=== PATIENT | male | born 1995 | race Caucasian/White ===

== ENCOUNTER 2020-09-25 22:43 | Emergency (ER) | payer OTHER, BC ==
--- NOTE | 2020-09-25 23:12 | EDM.PDOC ---
ED HPI GENERAL MEDICAL PROBLEM - General Chief Complaint: Bite:Animal, Insect Stated Complaint: DOG BITE Time Seen by Provider: 09/25/20 23:11 - History of Present Illness INITIAL COMMENTS - FREE TEXT/NARRATIVE: 25-year-old male presents the emergency room after a dog bite to the right arm. This occurred around 1230 this afternoon. The patient was evaluated at the [place] walk-in clinic. He was started on an antibiotic and got these filled and started taking it. He is not sure what antibiotic it is. His last tetanus shot was almost a year ago. The authorities were notified in a timely fashion of the dog bite and the patient did receive confirmation that the rabies is up-to-date as well as other vaccines. Patient denies any fevers or chills at this time he comes in because he is having a lot of drainage from the bite wounds. Right Arm Pain Score (Numeric/FACES): 6 - Related Data Allergies Allergy/AdvReac Type Severity Reaction Status Date / Time No Known Allergies Allergy Verified 09/25/20 23:16 Home Meds: Home Meds . [No Known Home Meds] 09/25/20 [History] ED ROS GENERAL - Review of Systems Review Of Systems: See Below Constitutional: Reports: No Symptoms. Denies: Fever, Chills ED EXAM, ANIMAL BITE - Physical Exam Exam: See Below Exam Limited By: No Limitations General Appearance: Alert, No Apparent Distress Respiratory/Chest: No Respiratory Distress, Lungs Clear, Normal Breath Sounds Cardiovascular: Regular Rate, Rhythm, No Edema, No Murmur Extremities: Other (Exam of the right arm reveals proximal forearm puncture wounds that have bloody serous drainage. Antibiotic ointment applied bulky absorptive dressings applied noncompressive.) Course - Vital Signs Last Recorded V/S: Last Vital Signs Temp 36.5 C 09/25/20 23:10 Pulse 67 09/25/20 23:10 Resp 16 09/25/20 23:10 BP 141/76 H 09/25/20 23:10 Pulse Ox 97 09/25/20 23:10 - Re-Assessments/Exams Free Text/Narrative Re-Assessment/Exam: 09/25/20 23:27 I did have the patient confirm that he is taken amoxicillin clavulanic acid 875 mg and his roommate sent him a bottle confirming this. The patient will be discharged home loose absorptive dressing over the area and keep this arm elevated is much as possible. Departure - Departure Time of Disposition: 23:27 Disposition: Home, Self-Care 01 Clinical Impression: Dog bite of right forearm - Discharge Information Instructions: Animal Bite, Adult, [id number] Referrals: PCP,None [Primary Care Provider] - Forms: ED Department Discharge, ED Return to Work/School Form Additional Instructions: Return to the emergency room with any questions problems or concerning symptoms. Take your antibiotics as directed. As long as these bite sites are draining keep a loose dressing over them to absorb the drainage. Keep your arm elevated is much as is practical. Keep it elevated above the level of the heart. Follow-up in the clinic tomorrow if needed. Do not hesitate to seek immediate medical attention if you think this is getting worse. Sepsis Event Note (ED) - Focused Exam Vital Signs: Vital Signs Temp Pulse Resp BP Pulse Ox 09/25/20 23:10 36.5 C 67 16 141/76 H 97
== END 2020-09-25 23:37 | disposition home or self-care (01) ==
LOC: JD.ED 22:43
DX: S51.851A Open bite of right forearm, initial encounter (principal); W54.0XXA Bitten by dog, initial encounter
CPT/HCPCS: 99283